=== PATIENT | female | born 1945 | race Caucasian/White ===

== ENCOUNTER → 2018-02-01 11:22 | Outpatient (CLI) | payer MEDICARE, SELFPAY ==
--- NOTE | 2018-02-01 11:25 | BI_ITS ---
MAMMOGRAPHY - BILATERAL SCREENING REASON FOR EXAM: Female, 72 years old. Routine annual screening examination. PERTINENT HISTORY: Grandmother with breast cancer. TECHNIQUE: Digital bilateral breast melisa (3D mammographic acquisition) in the CC and MLO projections. 2-D mediolateral oblique (MLO) and craniocaudad (CC) views of both breasts were obtained. CAD: Full Field Digital Mammography with Computer Added Detection was performed. COMPARISON: Comparison is made with prior study dated November 26, 2016 and October 11, 2015. FINDINGS: Breast Composition: There are scattered areas of fibroglandular density. There are no dominant masses or suspicious calcifications. Stable bilateral benign-appearing axillary lymph nodes. No other significant abnormalities are identified. There has been no significant change since the prior study. BI/SCREENING MAMM (CAD), BILAT IMPRESSION: Stable bilateral screening mammogram. Yearly follow-up mammogram recommended. (A) ASSESSMENT CATEGORY: BIRADS Category 2: Benign. A letter regarding these results will be sent to the patient by the facility within 30 days. Approximately 10% of breast cancers are not detected by mammography. A normal mammogram should not delay biopsy of a clinically suspicious abnormality. [id number] Electronically Signed: Flaquito Redd MD at 8:24 EDT Tel [phone], Service support ,
== END ==
PROVIDERS: Family Provider Internal Medicine; PCP Internal Medicine; Visit Provider Internal Medicine
DX: Z12.31 Encounter for screening mammogram for malignant neoplasm of breast (principal)
CPT/HCPCS: 77063; 77067

== ENCOUNTER → 2019-02-12 | Outpatient (CLI) | payer MEDICARE, SELFPAY ==
--- NOTE | 2019-02-12 10:35 | BI_ITS ---
MAMMOGRAPHY - BILATERAL SCREENING REASON FOR EXAM: Female, 73 years old. Routine annual screening examination. PERTINENT HISTORY: Grandmother with breast cancer. TECHNIQUE: Digital bilateral breast hoang (3D mammographic acquisition) in the CC and MLO projections. 2-D mediolateral oblique (MLO) and craniocaudad (CC) views of both breasts were obtained. CAD: Full Field Digital Mammography with Computer Added Detection was performed. COMPARISON: Comparison is made with prior examination dated February 01, 2018 and November 26, 2016. FINDINGS: Breast Composition: There are scattered areas of fibroglandular density. There are no dominant masses or suspicious calcifications. Stable small bilateral benign-appearing axillary lymph nodes. No other significant abnormalities are identified. There has been no significant change since the prior study. BI/SCREEN MAMM (CAD) W/HOANG BILAT IMPRESSION: Stable bilateral screening mammogram. Yearly follow-up mammogram recommended. (A) ASSESSMENT CATEGORY: BIRADS Category 2: Benign. A letter regarding these results will be sent to the patient by the facility within 30 days. Approximately 10% of breast cancers are not detected by mammography. A normal mammogram should not delay biopsy of a clinically suspicious abnormality. [id number] Electronically Signed: Flaquito Redd, at 10:51 EDT , Service support ,
== END | disposition home or self-care (01) ==
LOC: OPBI 10:31
PROVIDERS: Family Provider Internal Medicine; PCP Internal Medicine; Referring Provider Internal Medicine; Visit Provider Internal Medicine
DX: Z12.31 Encounter for screening mammogram for malignant neoplasm of breast (principal)
CPT/HCPCS: 77063; 77067

== ENCOUNTER → 2019-03-08 | Outpatient (CLI) | payer SELFPAY ==
--- NOTE | 2019-03-08 14:22 | CT_ITS ---
STUDY: CARDIAC CALCIUM SCORING - CT CHEST REASON FOR EXAM: Female, 73 years old. Hyperlipidemia RADIATION DOSAGE (If Supplied By Facility): CTDIvol = ( 12.19 ) mGy, DLP = ( 195.04 ) mGycm TECHNIQUE: Axial non-enhanced images were acquired through the heart for the sole purpose of measuring coronary artery calcium. Individualized dose optimization techniques were used for this CT. COMPARISON: None. FINDINGS: Visualized surrounding anatomy: Normal. Left Main Coronary Artery: 0 Left Anterior Descending Artery: 11.1 Left Circumflex Artery: 0 Right Coronary Artery: 0 Total Calcium Score: 11.1 CT/Limited Chest CT w/CCTA IMPRESSION: A Calcium Score of 11.1 places the patient in the approximate 28th percentile, based on the [employer] data calculator. Please go to: [email or web address] , for a description of the calculator. Electronically Signed: Daniele Fitzgerald, at 15:25 EDT Tel , Service support ,
[2019-03-08 14:37] VITALS: BP 127/61; PULSE 68; RESP 18; O2SAT 99; BMI 25.7
--- NOTE | 2019-03-10 08:55 | CA.SCORE ---
Calcium Scoring Date of Study:: 03/10/19 Coronary Calcium Scoring: High-resolution Computed Tomographic imaging of the chest was performed on [ ], with particular attention paid to the coronary arteries. Images from the examination were analyzed for the presence and extent of coronary artery calcification , using coronary calcium quantification software. The patient tolerated the procedure well and there were no complications. The results of the coronary calcification analysis are provided below. - Findings Left Main (LM): 0 Left Anterior Descending (LAD): 11.1 Left Circumflex (LCX): 0 Right Coronary Artery (RCA): 0 Total Agatston Score: 11.1 Percentile Rankin - Conclusion Calcium Scoring Interpretation: Calcium Score Interpretation 0 No identifiable atherosclerotic plaque. Very low cardiovascular disease risk. <5% chance of presence coronary artery disease A Negative Examination 1-10 Minimal Plaque burden. Significant coronary artery disease very unlikely. 11-100 Mild plaque burden. Likely mild or minimal coronary atherosclerosis. 101-400 Moderate plaque burden Moderate non-obstructive coronary artery disease highly likely. Over 400 Extensive plaque burden. High likelihood of at least one significant coronary stenosis (>50% diameter) Conclusions: Patient's calcium score is suggestive of mild plaque burden, likely mild or minimal coronary atherosclerosis. Recommendations: Risk factor modification. Adoption and maintenance of healthy lifestyle is recommended for all people. Tobacco use should be avoided. However these are general recommendations only, and as with all such matters, the personal physician should be consulted regarding recommendations appropriate for the individual.
== END | disposition home or self-care (01) ==
LOC: CT 14:20
PROVIDERS: Family Provider Internal Medicine; PCP Internal Medicine; Referring Provider Internal Medicine; Visit Provider Internal Medicine
DX: E78.5 Hyperlipidemia, unspecified (principal)
CPT/HCPCS: 75571; 76380

== ENCOUNTER → 2019-06-07 08:54 | Outpatient (CLI) | payer MEDICARE, SELFPAY ==
[2019-03-08 14:37] VITALS: BMI 25.7
--- NOTE | 2019-06-07 09:00 | BD_ITS ---
STUDY: DUAL ENERGY X-RAY ABSORPTIOMETRY / DXA REASON FOR EXAM: Female, 73 years old. The patient is postmenopausal. Loss of height. TECHNIQUE: Bone Mineral Density (BMD) measurements of lumbar spine and bilateral hips were obtained. COMPARISON: Comparison is made with prior study to May 30, 2015. FINDINGS: Lumbar Spine (L1-L4): g/cm2 (1.058) / T-score (-1.0) / Z-score (0.7) Findings are suggestive of normal bone density with a low fracture risk. Left Femur Total: g/cm2 (0.945) / T-score (-0.5) / Z-score (1.1) Left Femoral Neck: g/cm2 (0.819) / T-score (-1.6) / Z-score (0.3) Right Femur Total: g/cm2 (0.980) / T-score (-0.2) / Z-score (1.4) Right Femoral Neck: g/cm2 (0.864) / T-score (-1.2) / Z-score (0.6) The T-Scores on the most recent prior examination were: Lumbar Spine (L1-L4): There has been improvement of bone density since the previous examination. Left Femur Total: which represents an improvement of 0.3%. Right Femur Total: which represents an improvement of 0.9%. BD/Dexa Bone Density Study IMPRESSION: The patient is considered osteopenic as outlined below according to World [place] Organization (WHO) criteria with a moderate fracture risk. There has been improvement of bone density since the previous examination. Reference Information: The T-score is the number of standard deviations above or below the standard which is normal for young adults at their peak bone mineral density. The World Health Organization (WHO) interprets the T-scores as follows: Above -1 Normal bone density Between -1 and -2.5 Osteopenia Equal to / or below -2.5 Osteoporosis As a practical clinical guideline, osteopenia may be graded as follows: Mild -1 through -1.5 Moderate -1.6 through -2.0 Severe -2.1 through -2.4 The Z-score is the number of standard deviations above or below age-matched controls. A Z-score of less than -1.5 would be considered abnormal. References: 1. NIH Osteoporosis and Related Bone Diseases http://www.osteo.org 2. International Society for Clinical Densitometry http://www.iscd.org 3. National Osteoporosis Foundation http://www.nof.org Electronically Signed: Flaquito Redd, at 13:31 EDT , Service support ,
== END ==
PROVIDERS: Family Provider Internal Medicine; PCP Internal Medicine; Referring Provider Internal Medicine; Visit Provider Internal Medicine
DX: Z78.0 Asymptomatic menopausal state (principal)
CPT/HCPCS: 77080

== ENCOUNTER → 2019-11-30 14:41 | Outpatient (CLI) | payer MEDICARE, SELFPAY ==
[2019-03-08 14:37] VITALS: BMI 25.7
--- NOTE | 2019-11-30 14:50 | CT_ITS ---
STUDY: CT ABDOMEN AND PELVIS WITH CONTRAST REASON FOR EXAM: Female, 73 years old. RUQ abdomen pain and diarrhea x 2 weeks. Prior cholecystectomy. HTN-rx controlled. RADIATION DOSAGE (If Supplied By Facility): CTDIvol = ( 9.00 ) mGy, DLP = ( 433.95 ) mGycm TECHNIQUE: Transaxial images were obtained from the dome of the diaphragm to the symphysis pubis without oral contrast. IV 100ML optiray 350 was administered. Sagittal and coronal images were reconstructed. Individualized dose optimization techniques were used for this CT. COMPARISON: None. FINDINGS: The visualized lung bases are unremarkable. The visualized portions of the heart are within normal limits. Normal liver. The patient is status post cholecystectomy. Normal spleen. Normal pancreas. Normal bilateral adrenal glands. Normal right kidney. Normal left kidney. There is a small hiatal hernia. There appears to be a thickening of the gastric antrum. Clinical correlation is recommended. Normal small intestine. There are scattered colonic diverticula consistent with diverticulosis. The appendix is visualized and appears normal. There is scattered atherosclerotic calcification of the abdominal aorta, without a demonstrated aneurysm. Normal inferior vena cava. Normal retroperitoneum. Normal urinary bladder. There is a 1.5 cm x 1.4 cm cystic structure in the left ovary. The endometrium is thickened measuring 1.4 cm. This also evidence of a 2 cm x 1.1 cm cystic structure in the right adnexa. Correlation with ultrasound of the pelvis is recommended for further evaluation. Calcifications are seen within the uterus. Normal abdominal wall. There are degenerative changes of the visualized lumbar spine. CT/Abdomen/Pelvis WITH Contrast IMPRESSION: Thickened endometrium. Cystic structures in both ovaries. Correlation with a pelvic sonogram is recommended. Thickening of the gastric antrum. Electronically Signed: Flaquito Redd, at 15:25 EDT , Service support ,
[2019-11-30 15:16] LABS: CREATININE FINGERSTICK 0.7 mg/dL (0.55-1.02); EGFR FINGERSTICK > 60.0000 mL/min (>60)
== END ==
PROVIDERS: PCP Internal Medicine; Referring Provider Internal Medicine; Visit Provider Internal Medicine
DX: R10.9 Unspecified abdominal pain (principal)
CPT/HCPCS: 74177; Q9967

== ENCOUNTER → 2019-12-09 12:07 | Outpatient (CLI) | payer MEDICARE, SELFPAY ==
[2019-03-08 14:37] VITALS: BMI 25.7
--- NOTE | 2019-12-09 12:16 | US_ITS ---
STUDY: ULTRASOUND OF THE FEMALE PELVIS - COMPLETE REASON FOR EXAM: Female, 73 years old. Thickened endometrium, ovarian cyst LMP: The patient is postmenopausal. TECHNIQUE: Transabdominal and Transvaginal TECHNICAL QUALITY: Adequate. COMPARISON: Comparison made with prior CT scan examination of the abdomen and pelvis dated November 30, 2019. FINDINGS: The uterus is retroverted and is in a midline position. The uterus measures 6.5 cm x 3.7 cm x 2.8 cm. There is a Nabothian cyst of the cervix. The endometrium measures 6.9 mm in thickness, and is fluid distended. Findings suggestive of a small endometrial polyps. The larger measuring 6 mm x 5 mm x 2 mm. I suspect a 1.1 cm x 1.6 x 0.5 cm fibroid in the region of the cervix. I.U.D. - The patient does not have an I.U.D. The right ovary is visualized. The right ovary measures 1.2 cm x 0.77 x 0.6 cm. There is no right ovarian cyst or ovarian mass. There is no visualized right adnexal mass or complex lesion. There is normal arterial and normal venous vascularity. The left ovary is visualized. The left ovary measures 2.7 cm x 2.3 cm x 1.7 cm. There is a 1.8 cm x 1.6 x 1.5 cm cyst in the left ovary. There is no visualized left adnexal mass or complex lesion. There is normal arterial and normal venous vascularity. There is minimal fluid in the cul-de-sac. The pre void volume of the bladder was 118 ml. Polycystic ovary disease: No. US/Transvaginal Non- IMPRESSION: Thickened endometrium with fluid distention. Possible endometrial polyps. Small uterine fibroid in the region of the cervix. 1.8 cm x 1.6 x 1.5 cm left ovarian cyst. Electronically Signed: Flaquito Redd, at 14:19 EDT , Service support ,
== END ==
PROVIDERS: PCP Internal Medicine; Referring Provider Internal Medicine; Visit Provider Internal Medicine
DX: R10.31 Right lower quadrant pain (principal); R10.32 Left lower quadrant pain
CPT/HCPCS: 76830

== ENCOUNTER 2020-05-07 08:36 | Day surgery (SDC) | payer MEDICARE, SELFPAY ==
[2020-04-23 13:55] VITALS: BMI 25.7
--- NOTE | 2020-04-24 08:29 | HP_ITS ---
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 Is patient in pain?: No Allergies No Known Allergies Allergy (Verified 04/23/20 13:54) Medications cholecalciferol (vitamin D3) 50 mcg (2,000 unit) capsule 50 mcg PO DAILY 04/23/20 [History Confirmed 04/23/20] lisinopril 20 mg-hydrochlorothiazide 12.5 mg tablet 1 tab PO DAILY 04/23/20 [History Confirmed 04/23/20] vitamins A,C,O-ltvd-kigncu 7,160 unit-113 mg-100 unit tablet 2 tab PO BID 04/23/20 [History Confirmed 04/23/20] PFSH Medical History HTN (hypertension) (Chronic) Surgical History S/P laparoscopic cholecystectomy (Acute) Family History Grandmother Breast cancer Cancer stomach Social History (Updated 04/24/20 @ 08:[address] Jf Estevez MD) Smoking Status: Never smoker alcohol intake: never HPI HPI Surgical H&P: Yes HPI: LOPEZ JACKSON, is a 74 F who presents to the office today for Evaluation for endoscopy. Patient states that she has been having cramps and diarrhea since November 2019. She is also been having some belching. She has had negative stool studies. In addition she had a CAT scan of her abdomen and pelvis which showed thickening of the gastric antrum on her CT. This essentially been going off and on since November 14. Her last colonoscopy was in 2010. It was negative at that time. She has not noticed any blood. Her CAT scan also noted that she had a small hiatal hernia in addition to the thickening of the gastric antrum. She does have a family history of gastric cancer. ROS General General: Yes fatigue; no weight change, appetite, colon cancer, breast cancer or weakness HEENT HEENT: No difficulty swallowing, eye injury, eye surgery, swollen glands or hoarseness Endo Endocrine: No thyroid disease, diabetes mellitus, thyroid cancer, Hair loss, heat intolerance or cold intolerance Skin Skin: No rash or changing moles Breast Breast: No left breast lump, right breast lump, nipple discharge, breast pain, abnormal mammogram, abnormal US or breast enlargement Musc Musculoskeletal: No back problems, arthritis, rheumatoid arthritis, gout or joint pain Cardio Cardiovascular: Yes high blood pressure; no murmur, pacemaker, heart disease, atrial fibrillation, heart attack, heart stent, palpitations, shortness of breat with exertion or chest pain Psych Psychiatric: No depression, anxiety or hearing voices Resp Respiratory: No shortness of breath, No sleep apnea, No cough, No COPD, No asthma, No emphysema, No wheezing Gastro Gastrointestinal: Yes abdominal pain, Yes nausea or vomiting, Yes diarrhea, No constipation, No blood in stool, Yes acid reflux, No hemorrhoids, No ulcers, No gallbladder problem, No black,tarry stools Rg Hematologic: No blood thinners, No blood disorders, No bleeding, No anemia, No blood clots Neuro Neurologic: No system reviewed and no additional complaints, except as docu, No as per HPI, No abnormal walking, No abnormal hearing, No abnormal movements, No abnormal speech, No behavioral changes, No burning sensations, No confusion, No seizure-like activity, No unsteadiness, No dizziness, No localized weakness, No frequent falls, No headache(s), No lack of coordination, No loss of vision, No memory loss, No numbness, No other visual disturbances, No radiating pain, No restless legs, No sensory deficit, No fainting, No tingling, No tremor(s), No weakness, No other Exam Const General: no acute distress, well developed, well hydrated Orientation: oriented to person, oriented to place, oriented to time [facility] Head: normocephalic, atraumatic Ears: external ears normal Mouth: moist mucous membranes Eyes Sclera: sclerae normal Pupils: normal by confrontation Neck Neck: no lymphadenopathy noted Neck mass: No Thyroid: thyroid normal, symmetrical Chest Chest palpation & inspection: normal inspection of the chest Breast Palpation: No nipple discharge Resp Effort & Inspection: normal respiratory effort Auscultation: clear to auscultation bilaterally Percussion: percussion normal Cardio Rate: regular rate Rhythm: regular rhythm Heart Sounds: no murmurs GI Palpation: soft, no hepatosplenomegaly, no masses, nontender Rectal Exam: other Other: Rectal exam deferred. Extrem General: normal to inspection, no clubbing, cyanosis or edema Assessment & Plan Problems 1. Abnormal CT scan, gastrointestinal tract R93.3 2. Diarrhea, unspecified type R19.7 Plan I have discussed the above with the patient. I have offered the patient colonoscopy As well as an EGD for evaluation. I have explained the risks/benefits of the procedure and described the procedure. I have discussed the risks with the patient, including but not limited to: infection, bleeding, perforation of the GI tract requiring emergency surgery, inability to complete the procedure, injury to any internal organs, complications of anesthesia, etc. - the patient understands and agrees to proceed. I have answered all the patient's questions to the patient's satisfaction and the patient has no further questions. The patient has been given instructions for the colon cleansing preparation. We will be biopsying the duodenum as well as any abnormalities in the stomach. In addition she will need to have random colon biopsies. Coding Level of Care Code Off vis,new,level [address] scan, gastrointestinal tract R93.3 Diarrhea, unspecified type R19.7 ??Diarrhea type: unspecified type 04/24/20 0830 <Electronically signed by Jf ayala MD> Date _ Jf Estevez MD I have re-examined the patient. There are no clinical changes since date of exam.
[2020-05-07] VITALS (7 sets, daily range): BP systolic 97–131; BP diastolic 35–58; PULSE 63–81; RESP 16–18; TEMP 36.3–36.7; O2SAT 98–100; BMI 25.0
[2020-05-07] MEDS: Lactated Ringers 1,000 ML 100 ML IV (09:40)
--- NOTE | 2020-05-07 10:00 | EGD_PTH ---
PATIENT: LOPEZ JACKSON LOC: EN U#:[id number] AGE/SX: 74/F ROOM: RE05/07/[address]: Dr. Jf Estevez MD : 1945 BED: DIS: 05/07/2020 SPEC #: [id number] RECD: 05/07/20 12:24 STATUS: ANAT REMichael #: [id number] FARIDEH: 05/07/20 10:[address]: Jf Estevez DEPT: SURGICAL PATHOLOGY RECD BY: Kilo Sun ENTERED: 05/07/20 12:57 SP TYPE: EGD BIOPSY OTHR DR: Dr. Balbina Schulz DO Tissues: A - Duodenum, NOS B - Gastric mucous membrane C - COLON BIOPSY Procedures: Trichrome (control) Special Stain Group II Surgery Specimen Level IV HEADER OPERATION: Colonoscopy, EGD ([facility] [place]) PRE-OP DIAGNOSIS: Abnormal abdomen CT scan, diarrhea TISSUE SUBMITTED: A - Duodenal biopsy, B - Antrum biopsy for H. pylori and path, C - Random colon biopsies MICROSCOPIC DIAGNOSIS A. Duodenum, biopsy: No significant pathologic change. B. Gastric antrum, biopsy: Minimal chronic inflammation. C. Colon, random biopsy: Suggestive of collagenous colitis. See comment. AM:charleen 05/08/20 COMMENT B. The results of immunohistochemistry for Helicobacter pylori will be reported separately ([id number]). C. Trichrome stain with matched control was used in the evaluation of this case. Case has been reviewed in consultation with Dr. Amaya who concurs with the above diagnosis. IDC:[email or web address] MICROSCOPIC DESCRIPTION Slides are reviewed. GROSS DESCRIPTION A - Received in fixative is one container labeled with the patient's name and designated duodenum biopsy. The specimen consists of one irregular fragment of light shafer soft tissue that measures 0.5 x 0.4 x 0.1 cm. The specimen is totally submitted in one cassette. B - Received in fixative is one container labeled with the patient's name and designated antrum biopsy. The specimen consists of one irregular fragment of light shafer soft tissue that measures 0.4 x 0.3 x 0.1 cm. The specimen is totally submitted in one cassette. C - Received in fixative is one container labeled with the patient's name and designated random colon biopsy. The specimen consists of multiple irregular fragments of light shafer soft tissue that in aggregate measure 2.5 x 0.5 x 0.1 cm. The specimen is totally submitted in one cassette. / SJ:rg 05/07/20 TC:3 CPT: 06293 x3, 41783
--- NOTE | 2020-05-07 10:00 | IMM_PTH ---
PATIENT: LOPEZ JACKSON LOC: EN U#:[id number] AGE/SX: 74/F ROOM: RE05/07/[address]: Dr. Jf Estevez MD : 1945 BED: DIS: 05/07/2020 SPEC #: [id number] RECD: 05/07/20 13:12 STATUS: SOUYon REQ #: [id number] FARIDEH: 05/07/20 10:[address]: Jf Estevez DEPT: IMMUNOHISTOCHEMISTRY RECD BY: Swetha Rayo ENTERED: 05/07/20 13:13 SP TYPE: IMMUNO OTHR DR: Dr. Balbina Schulz DO Tissues: B - Stomach, NOS Procedures: H Pylori (initial) PHYSICIAN & INSTITUTION [place] [address] SPECIMEN INFORMATION: Tissue Source: B - Antrum biopsy Clinical Info: Abnormal abdomen CT scan, diarrhea Specimen Number: [id number] CPT code: 40105 METHODOLOGY: Deparaffinized sections of prefer/formalin-fixed tissue or PAP/DQ stained slides are incubated with monoclonal/polyclonal antibodies/oligonucleotide probes. Localization is made via biotin free immunoperoxidase method. Appropriate controls are performed and reacted as expected. Results on target cell population are indicated in the following table: RESULTS: ANTIBODY / CLONE RESULT Block B H Pylori (polyclonal) negative These tests were developed and their performance characteristics determined by [facility]. They may not have been cleared or approved by the U.S. Food and Drug Administration. The FDA has determined that such clearance or approval is not necessary. INTERPRETATION: B. Antrum biopsy: Negative for Helicobacter pylori organisms. AM:charleen 05/08/20
--- NOTE | 2020-05-07 10:21 | OP.EGD_ITS ---
Patient Name: Rozina Tavera Procedure Date: 05/07/2020 9:51 AM Date of : 1945 Age: 74 Procedure: Upper GI endoscopy Indications: Abnormal CT of the GI tract, Diarrhea Providers: Jf Estevez MD Referring MD: Balbina Schulz Medicines: See the Anesthesia note for documentation of the administered medications Patient Profile: This is a 74 year old female. Refer to note in patient chart for documentation of history and physical. Complications: No immediate complications. Procedure: Pre-Anesthesia Assessment: - Prior to the procedure, a History and Physical was performed, and patient medications and allergies were reviewed. The patient's tolerance of previous anesthesia was also reviewed. The risks and benefits of the procedure and the sedation options and risks were discussed with the patient. All questions were answered, and informed consent was obtained. Prior Anticoagulants: The patient has taken no previous anticoagulant or antiplatelet agents. ASA Grade Assessment: II - A patient with mild systemic disease. After reviewing the risks and benefits, the patient was deemed in satisfactory condition to undergo the procedure. After obtaining informed consent, the endoscope was passed under direct vision. Throughout the procedure, the patient's blood pressure, pulse, and oxygen saturations were monitored continuously. The Endoscope was introduced through the mouth, and advanced to the second part of duodenum. The upper GI endoscopy was accomplished without difficulty. The patient tolerated the procedure well. Scope In: 10:01:50 AM Scope Out: 10:04:03 AM Total Procedure Duration Time 0 hours 2 minutes 13 seconds Findings: The examined esophagus was normal. Localized mild inflammation characterized by erosions and erythema was found in the prepyloric region of the stomach. Biopsies were taken with a cold forceps for Helicobacter pylori testing. The examined duodenum was normal. Biopsies for histology were taken with a cold forceps for evaluation of celiac disease. Impression: - Normal esophagus. - Gastritis. Biopsied. - Normal examined duodenum. Biopsied. Recommendation: - Await pathology results. - Repeat upper endoscopy (date not yet determined) for surveillance based on pathology results. - Return to my office in 1 week. - Continue present medications. Procedure Code(s): --- Professional --- 47193, Esophagogastroduodenoscopy, flexible, transoral; with biopsy, single or multiple Diagnosis Code(s): --- Professional --- K29.70, Gastritis, unspecified, without bleeding R19.7, Diarrhea, unspecified R93.3, Abnormal findings on diagnostic imaging of other parts of digestive tract CPT copyright 2017 [employer]. All rights reserved. The codes documented in this report are preliminary and upon power transformer assembler review may be revised to meet current compliance requirements. MD Jf Nava MD 05/07/2020 10:21:37 AM This report has been signed electronically. Number of Addenda: 0 Note Initiated On: 05/07/2020 9:51 AM
--- NOTE | 2020-05-07 10:22 | OP.CCLET_ITS ---
05/07/2020 Balbina Schulz Re : Upper GI endoscopy procedure for Rozina Schulz This procedure was performed on Thursday, May 07, 2020. My impressions and recommendations are as follows: Impressions : - Normal esophagus. - Gastritis. Biopsied. - Normal examined duodenum. Biopsied. Recommendations : - Await pathology results. - Repeat upper endoscopy (date not yet determined) for surveillance based on pathology results. - Return to my office in 1 week. - Continue present medications. My findings are described in the full procedure note, which is enclosed. If I can be of further assistance, please feel free to contact me at Doctor phone number(s): , Fax: [phone], Work: . Sincerely, MD Jf Nava MD 05/07/2020 10:21:37 AM This report has been signed electronically.
--- NOTE | 2020-05-07 10:24 | OP.CCLET_ITS ---
05/07/2020 Balbina Schulz Re : Colonoscopy procedure for Rozina Schulz This procedure was performed on Thursday, May 07, 2020. My impressions and recommendations are as follows: Impressions : - Diverticulosis in the sigmoid colon. No specimens collected. - The entire examined colon is normal. Recommendations : - Discharge patient to home. - Resume previous diet. - Continue present medications. - Await pathology results. - Repeat colonoscopy in 10 years for screening purposes. - Return to my office in 1 week. My findings are described in the full procedure note, which is enclosed. If I can be of further assistance, please feel free to contact me at Doctor phone number(s): , Fax: [phone], Work: . Sincerely, MD Jf Nava MD 05/07/2020 10:24:16 AM This report has been signed electronically.
--- NOTE | 2020-05-07 10:24 | OP.COLON_ITS ---
Patient Name: Rozina Tavera Procedure Date: 05/07/2020 10:04 AM Date of : 1945 Age: 74 Procedure: Colonoscopy Indications: Chronic diarrhea Providers: Jf Estevez MD Referring MD: Balbina Schulz Medicines: See the Anesthesia note for documentation of the administered medications Patient Profile: This is a 74 year old female. Refer to note in patient chart for documentation of history and physical. Last Colonoscopy: 2010. Complications: No immediate complications. Procedure: Pre-Anesthesia Assessment: - Prior to the procedure, a History and Physical was performed, and patient medications and allergies were reviewed. The patient's tolerance of previous anesthesia was also reviewed. The risks and benefits of the procedure and the sedation options and risks were discussed with the patient. All questions were answered, and informed consent was obtained. Prior Anticoagulants: The patient has taken no previous anticoagulant or antiplatelet agents. ASA Grade Assessment: II - A patient with mild systemic disease. After reviewing the risks and benefits, the patient was deemed in satisfactory condition to undergo the procedure. After I obtained informed consent, the scope was passed under direct vision. Throughout the procedure, the patient's blood pressure, pulse, and oxygen saturations were monitored continuously. The colonoscope was introduced through the anus and advanced to the cecum, identified by appendiceal orifice and ileocecal valve. The colonoscopy was performed without difficulty. The patient tolerated the procedure well. The quality of the bowel preparation was good. Scope In: 10:06:01 AM Scope Withdrawal Time 0 hours 6 minutes 40 seconds Scope Out: 10:17:28 AM Total Procedure Duration Time 0 hours 11 minutes 27 seconds Findings: A few small-mouthed diverticula were found in the sigmoid colon. No biopsies or other specimens were collected for this exam. The entire examined colon appeared normal. The colon (entire examined portion) appeared normal. Biopsies for histology were taken with a cold forceps from the entire colon for evaluation of microscopic colitis. Impression: - Diverticulosis in the sigmoid colon. No specimens collected. - The entire examined colon is normal. Recommendation: - Discharge patient to home. - Resume previous diet. - Continue present medications. - Await pathology results. - Repeat colonoscopy in 10 years for screening purposes. - Return to my office in 1 week. Procedure Code(s): --- Professional --- 92584, Colonoscopy, flexible; with biopsy, single or multiple Diagnosis Code(s): --- Professional --- K52.9, Noninfective gastroenteritis and colitis, unspecified K57.30, Diverticulosis of large intestine without perforation or abscess without bleeding CPT copyright 2017 [employer]. All rights reserved. The codes documented in this report are preliminary and upon coder operator review may be revised to meet current compliance requirements. MD Jf Nava MD 05/07/2020 10:24:16 AM This report has been signed electronically. Number of Addenda: 0 Note Initiated On: 05/07/2020 10:04 AM
== END 2020-05-07 11:27 | disposition home or self-care (01) ==
LOC: EN 08:37 → AC 08:38
PROVIDERS: Anesthesiology; PCP Internal Medicine; Referring Provider Internal Medicine; Visit Provider Surgery
PROC: 0DJD8ZZ Inspection of Lower Intestinal Tract, Via Natural or Artificial Opening Endoscopic (ICD-10-PCS; CPT 45378; principal; 2020-05-07 09:55)
DX: K57.30 Diverticulosis of large intestine without perforation or abscess without bleeding (principal); K52.9 Noninfective gastroenteritis and colitis, unspecified; R93.3 Abnormal findings on diagnostic imaging of other parts of digestive tract; Z11.59 Encounter for screening for other viral diseases
CPT/HCPCS: 43239; 45380; 87635; 88305; 88313; 88342; 94799; J7120; J1610; J2405; U0003

== ENCOUNTER → 2020-05-25 12:43 | Outpatient (CLI) | payer MEDICARE, SELFPAY ==
[2019-03-08 14:37] VITALS: BMI 25.7
[2020-05-14 09:37] VITALS: BMI 25.0
--- NOTE | 2020-05-25 12:47 | US_ITS ---
STUDY: ULTRASOUND OF THE FEMALE PELVIS - COMPLETE REASON FOR EXAM: Female, 74 years old. OV CYST LMP: The patient is postmenopausal. TECHNIQUE: Transabdominal and Transvaginal TECHNICAL QUALITY: Adequate. COMPARISON: Previous study of 12/09/2019 FINDINGS: The uterus is anteverted and is in a midline position. The uterus measures 5.5 x 3.5 x 2.6 cm. The endometrium measures 7.8 mm in thickness, and is fluid distended. There are endometrial polypoid filling defects measuring 5 x 6 x 3 mm and 3 x 5 x 2 mm respectively. There are 3 uterine fibroids measuring 0.9 x 1.1 x 0.9 cm, 1.1 x 0.9 x 0.8 cm, and 0.4 x 0.6 x 0.2 cm respectively. I.U.D. - The patient does not have an I.U.D. The right ovary is not visualized. The left ovary is visualized. The left ovary measures 2.1 x 2.2 x 1.5 cm. There is a 1.1 x 1.2 x 1.0 cm left ovarian cyst. There is no visualized left adnexal mass or complex lesion. There is normal arterial and normal venous vascularity. There is no fluid in the cul-de-sac. The pre void volume of the bladder was 328 ml. The post void volume of the bladder was ml. Polycystic ovary disease: No. US/Transvaginal Non- IMPRESSION: 1. Endometrial polypoid filling defects, similar to the previous study. Endometrial fluid is present. This was also previously seen. 2. Uterine fibroids as detailed above. 3. 1.1 x 1.2 x 1.0 cm left ovarian cyst. 4. Cervical nabothian cyst. Electronically Signed: Dionicio العلي MD at 19:59 EDT , Service support ,
--- NOTE | 2020-05-25 12:47 | BI_ITS ---
MAMMOGRAPHY - BILATERAL SCREENING REASON FOR EXAM: Female, 74 years old. Routine annual screening examination. PERTINENT HISTORY: Grandmother with breast cancer. TECHNIQUE: Digital bilateral breast hoang (3D mammographic acquisition) in the CC and MLO projections. 2-D mediolateral oblique (MLO) and craniocaudad (CC) views of both breasts were obtained. CAD: Full Field Digital Mammography with Computer Added Detection was performed. COMPARISON: Comparison is made with prior study dated 02/12/2019 and 02/01/2018. FINDINGS: Breast Composition: There are scattered areas of fibroglandular density. There are no dominant masses or suspicious calcifications. Stable benign appearing bilateral axillary lymph node. No other significant abnormalities are identified. There has been no significant change since the prior study. BI/SCREEN MAMM (CAD) W/HOANG BILAT IMPRESSION: Stable bilateral screening mammogram. Yearly follow-up mammogram recommended. (A) ASSESSMENT CATEGORY: BIRADS Category 2: Benign. A letter regarding these results will be sent to the patient by the facility within 30 days. Approximately 10% of breast cancers are not detected by mammography. A normal mammogram should not delay biopsy of a clinically suspicious abnormality. [id number] Electronically Signed: Flaquito Redd, at 14:25 EDT , Service support ,
== END ==
PROVIDERS: PCP Internal Medicine; Referring Provider Internal Medicine; Visit Provider Internal Medicine
DX: Z12.31 Encounter for screening mammogram for malignant neoplasm of breast (principal); D25.9 Leiomyoma of uterus, unspecified; N83.202 Unspecified ovarian cyst, left side; N88.8 Other specified noninflammatory disorders of cervix uteri; Z78.0 Asymptomatic menopausal state; Z80.3 Family history of malignant neoplasm of breast
CPT/HCPCS: 76830; 77063; 77067

== ENCOUNTER → 2021-08-20 10:19 | Outpatient (CLI) | payer MEDICARE, SELFPAY ==
--- NOTE | 2021-08-20 10:22 | BI_ITS ---
MAMMOGRAPHY - BILATERAL SCREENING REASON FOR EXAM: Female, 75 years old. Routine annual screening examination. PERTINENT HISTORY: Aunt with breast cancer. TECHNIQUE: Digital bilateral breast hoang (3D mammographic acquisition) in the CC and MLO projections. 2-D mediolateral oblique (MLO) and craniocaudad (CC) views of both breasts were obtained. CAD: Full Field Digital Mammography with Computer Added Detection was performed. COMPARISON: Comparison is made with prior study dated 05/25/2020 and 02/12/2019. FINDINGS: Breast Composition: There are scattered areas of fibroglandular density. There are no dominant masses or suspicious calcifications. No other significant abnormalities are identified. There has been no significant change since the prior study. BI/SCRN MAMM (CAD)W/HOANG BILAT IMPRESSION: Stable bilateral screening mammogram. Yearly follow-up mammogram recommended. (A) ASSESSMENT CATEGORY: BIRADS Category 1: Negative. A letter regarding these results will be sent to the patient by the facility within 30 days. Approximately 10% of breast cancers are not detected by mammography. A normal mammogram should not delay biopsy of a clinically suspicious abnormality. [id number] Electronically Signed: Flaquito Redd MD at 11:26 EST , Service support ,
--- NOTE | 2021-08-20 10:26 | BD_ITS ---
STUDY: DUAL ENERGY X-RAY ABSORPTIOMETRY / DXA REASON FOR EXAM: Female, 75 years old. Z780. The patient is postmenopausal. TECHNIQUE: Bone Mineral Density (BMD) measurements of lumbar spine and bilateral hips were obtained. COMPARISON: Comparison is made with prior study dated 06/07/2019. FINDINGS: Lumbar Spine (L1-L4): g/cm2 (0.905) / T-score (-1.3) / Z-score (1.1) Findings are suggestive of osteopenia with a low fracture risk. Left Femur Total: g/cm2 (0.835) / T-score (-0.9) / Z-score (0.9) Left Femoral Neck: g/cm2 (0.668) / T-score (-1.6) / Z-score (0.5) Right Femur Total: g/cm2 (0.842) / T-score (-0.8) / Z-score (1.0) Right Femoral Neck: g/cm2 (0.680) / T-score (-1.5) / Z-score (0.6) The T-Scores on the most recent prior examination were: Lumbar Spine (L1-L4): There has been worsening of bone density since the previous examination. Left Femur Total: which represents a worsening of 5.1%. Right Femur Total: which represents a worsening of 7.9%. BD/Dexa Bone Density Study IMPRESSION: The patient is considered osteopenic as outlined below according to World [place] Organization (WHO) criteria with a moderate fracture risk. There has been worsening of bone density since the previous examination. Reference Information: The T-score is the number of standard deviations above or below the standard which is normal for young adults at their peak bone mineral density. The World Health Organization (WHO) interprets the T-scores as follows: Above -1 Normal bone density Between -1 and -2.5 Osteopenia Equal to / or below -2.5 Osteoporosis As a practical clinical guideline, osteopenia may be graded as follows: Mild -1 through -1.5 Moderate -1.6 through -2.0 Severe -2.1 through -2.4 The Z-score is the number of standard deviations above or below age-matched controls. A Z-score of less than -1.5 would be considered abnormal. References: 1. NIH Osteoporosis and Related Bone Diseases www osteo.org 2. International Society for Clinical Densitometry www iscd.org 3. National Osteoporosis Foundation www nof.org Electronically Signed: Flaquito Redd MD at 10:41 EST , Service support ,
== END ==
PROVIDERS: PCP Internal Medicine; Referring Provider Internal Medicine; Visit Provider Internal Medicine
DX: Z12.31 Encounter for screening mammogram for malignant neoplasm of breast (principal); Z78.0 Asymptomatic menopausal state; M85.80 Other specified disorders of bone density and structure, unspecified site; Z80.3 Family history of malignant neoplasm of breast
CPT/HCPCS: 77063; 77067; 77080

== ENCOUNTER → 2022-07-23 | Outpatient (CLI) | payer MEDICARE, SELFPAY ==
--- NOTE | 2022-07-23 13:12 | US_ITS ---
STUDY: ULTRASOUND OF THE FEMALE PELVIS - COMPLETE REASON FOR EXAM: Female, 76 years old. OVARIAN CYST TECHNIQUE: Endovaginal. Transvaginal US was obtained to better visualized the ovaries. COMPARISON: 05/25/2020. FINDINGS: The uterus is retroverted and is in a midline position. The uterus measures 6.6 x 3.3 cm. There is a Nabothian cyst of the cervix. The endometrium measures 2.6 mm in thickness, and is fluid distended. There are findings suggesting endometrial mass. It is echogenic and measures 6 x 4 x 3 mm, 4 x 5 x 2 mm and a complex lesion measuring 5 x 5 x 4 mm. Fibroids visualized measuring 10 x 9 mm and 13 x 9 mm. I.U.D. - The patient does not have an I.U.D. There is nonvisualization of the right ovary due to overlying bowel gas. The left ovary is visualized. The left ovary measures 2 x 2 cm. Probable follicle measuring 16 mm. There is no visualized left adnexal mass or complex lesion. There is normal arterial and normal venous vascularity. There is no fluid in the cul-de-sac. Urinary bladder volume is (in cc) 229. US/Pelvic (Non ) IMPRESSION: There are endometrial lesions concerning for possible endometrial carcinoma. Direct visualization is recommended. Fibroid uterus Slight enlargement of the left ovarian cyst. Electronically Signed: Moises Collier MD at 21:17 EST ,
== END | disposition home or self-care (01) ==
LOC: OPUS 13:10 → US 13:18
PROVIDERS: PCP Internal Medicine; Referring Provider Internal Medicine; Visit Provider Internal Medicine
DX: N83.209 Unspecified ovarian cyst, unspecified side (principal)
CPT/HCPCS: 76830; 76856

== ENCOUNTER → 2022-07-28 | Outpatient (CLI) | payer MEDICARE, SELFPAY ==
--- NOTE | 2022-07-30 13:07 | PFT ---
INTRODUCTION: The patient is a 76-year-old female that presents for pulmonary function studies secondary to a diagnosis of dyspnea. Respiratory therapy reported good patient effort. Bronchodilators were used during testing. INTERPRETATION: Forced expiration spirometry demonstrates no evidence of a large airways obstructive ventilatory defect. There was a significant response to aerosolized bronchodilators noted. Spirograms are of good quality and plateau normally. Body plethysmography was performed and revealed a decreased TLC to 3.33 L, 80% of predicted, indicative of a mild restrictive ventilatory impairment. Diffusing capacity by single breath CO is within normal limits. 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
== END | disposition home or self-care (01) ==
LOC: PSN 09:07
PROVIDERS: PCP Internal Medicine; Referring Provider Internal Medicine; Visit Provider Internal Medicine
DX: R94.2 Abnormal results of pulmonary function studies (principal)
CPT/HCPCS: 94060; 94726; 94729

== ENCOUNTER → 2023-02-13 | Outpatient (CLI) | payer MEDICARE, SELFPAY ==
--- NOTE | 2023-02-13 10:39 | BI_ITS ---
MAMMOGRAPHY - BILATERAL SCREENING REASON FOR EXAM: Female, 77 years old. Routine annual screening examination. PERTINENT HISTORY: Grandmother with breast cancer. TECHNIQUE: Digital bilateral breast hoang (3D mammographic acquisition) in the CC and MLO projections. 2-D mediolateral oblique (MLO) and craniocaudad (CC) views of both breasts were obtained. CAD: Full Field Digital Mammography with Computer Added Detection was performed. COMPARISON: Comparison is made with prior study dated August 20, 2021 and May 25, 2020. FINDINGS: Breast Composition: There are scattered areas of fibroglandular density. There are no dominant masses or suspicious calcifications. Stable benign-appearing bilateral axillary lymph nodes. No other significant abnormalities are identified. There has been no significant change since the prior study. BI/SCRN MAMM (CAD)W/HOANG BILAT IMPRESSION: Stable bilateral screening mammogram. Yearly follow-up mammogram recommended. (A) ASSESSMENT CATEGORY: BIRADS Category 2: Benign. A letter regarding these results will be sent to the patient by the facility within 30 days. Approximately 10% of breast cancers are not detected by mammography. A normal mammogram should not delay biopsy of a clinically suspicious abnormality. [id number] Electronically Signed: Flaquito Redd MD at 12:37 EDT ,
== END | disposition home or self-care (01) ==
LOC: OPBI 10:38
PROVIDERS: PCP Internal Medicine; Referring Provider Internal Medicine; Visit Provider Internal Medicine
DX: Z12.31 Encounter for screening mammogram for malignant neoplasm of breast (principal)
CPT/HCPCS: 77063; 77067

== ENCOUNTER → 2023-07-29 | Outpatient (CLI) | payer MEDICARE, SELFPAY ==
--- NOTE | 2023-07-29 18:31 | CT_ITS ---
INDICATION: lung nodule EXAMINATION: CT CHEST WITHOUT CONTRAST - CT Chest W/O Contrast Injection TECHNIQUE: Helically acquired images were obtained of the chest. A radiation dose optimization technique was used for this scan. IV Contrast dosage and agent: None. RADIATION DOSAGE (If Supplied By Facility): CTDIvol = ( 7.53 ) mGy, DLP = ( 248.41 ) mGycm COMPARISON: Chest x-ray of 07/01/2023. FINDINGS: LUNGS, PLEURA AND LARGE AIRWAYS: Focal nodularity and tree-in-bud appearance in the right upper lobe abutting the posterior major fissure. Adjacent 1.5 x 0.9 cm nodular density also abutting the major fissure. Mild focal tree-in-bud appearance and nodularity in the left upper lobe. Soft tissue density in the lingula measuring about 1 cm. No focal consolidation is seen. No pleural effusion or thickening. No pneumothorax. THYROID: No thyroid lesions. HEART AND PERICARDIUM: Heart size is normal. No pericardial effusion. CORONARY ARTERIES: Coronary artery calcification are seen. VESSELS: Atherosclerotic calcifications and mild tortuosity of the thoracic aorta without evidence of aneurysm. MEDIASTINUM AND BAUDILIO: Few small mediastinal nodes. No evidence of hilar or mediastinal adenopathy. Esophagus is unremarkable. No hiatal hernia. UPPER ABDOMEN: No acute pathology. BONES: No suspicious lytic or blastic abnormality. CT/Chest without Contrast IMPRESSION: 1. Focal areas of nodularity and tree-in-bud appearance in both upper lobes likely reflecting previous infectious process. 2. 1.5 cm nodule adjacent to the nodularity in the right upper lobe again likely inflammatory or infectious. Tumor however cannot be excluded. Follow-up exam in 3 months or correlation with PET scan is recommended. 3. 1 cm density in the lingula which can be further evaluated by follow-up exam.. Electronically Signed: Beto Gaspar MD at 10:09 [facility] ,
== END | disposition home or self-care (01) ==
LOC: CT 18:25
PROVIDERS: PCP Internal Medicine; Referring Provider Internal Medicine; Visit Provider Internal Medicine
DX: R91.1 Solitary pulmonary nodule (principal)
CPT/HCPCS: 71250

== ENCOUNTER → 2023-08-27 | Outpatient (CLI) | payer MEDICARE, SELFPAY ==
--- NOTE | 2023-08-27 10:50 | BD_ITS ---
STUDY: DUAL ENERGY X-RAY ABSORPTIOMETRY / DXA REASON FOR EXAM: Female, 77 years old. 627.8Menopausal postmenopausal BONE DENSITY REASON FOR EXAM TECHNIQUE: Bone Mineral Density (BMD) measurements of lumbar spine and bilateral hips were obtained. COMPARISON: Comparison is made with prior study dated August 20, 2021. FINDINGS: Lumbar Spine (L1-L4): g/cm2 (0.922) / T-score (-1.6) / Z-score (1.1) Findings are suggestive of osteopenia with a moderate fracture risk. Left Femur Total: g/cm2 (0.817) / T-score (-1.0) / Z-score (0.9) Left Femoral Neck: g/cm2 (0.628) / T-score (-2.0) / Z-score (0.2) Right Femur Total: g/cm2 (0.820) / T-score (-1.0) / Z-score (0.9) Right Femoral Neck: g/cm2 (0.644) / T-score (-1.8) / Z-score (0.4) The T-Scores on the most recent prior examination were: Lumbar Spine (L1-L4): There has been worsening of bone density since the previous examination. Left Femur Total: which represents a worsening of 2.2%. Right Femur Total: which represents a worsening of 2.6%. BD/Dexa Bone Density Study IMPRESSION: The patient is considered osteopenic as outlined below according to World [place] Organization (WHO) criteria with a moderate fracture risk. There has been worsening of bone density since the previous examination. Reference Information: The T-score is the number of standard deviations above or below the standard which is normal for young adults at their peak bone mineral density. The World Health Organization (WHO) interprets the T-scores as follows: Above -1 Normal bone density Between -1 and -2.5 Osteopenia Equal to / or below -2.5 Osteoporosis As a practical clinical guideline, osteopenia may be graded as follows: Mild -1 through -1.5 Moderate -1.6 through -2.0 Severe -2.1 through -2.4 The Z-score is the number of standard deviations above or below age-matched controls. A Z-score of less than -1.5 would be considered abnormal. References: 1. NIH Osteoporosis and Related Bone Diseases www osteo.org 2. International Society for Clinical Densitometry www iscd.org 3. National Osteoporosis Foundation www nof.org Electronically Signed: Flaquito Redd MD at 10:36 EST ,
== END | disposition home or self-care (01) ==
LOC: OPBD 10:45
PROVIDERS: PCP Internal Medicine; Referring Provider Internal Medicine; Visit Provider Internal Medicine
DX: Z78.0 Asymptomatic menopausal state (principal)
CPT/HCPCS: 77080

== ENCOUNTER → 2023-09-01 | Outpatient (CLI) | payer MEDICARE, SELFPAY ==
--- NOTE | 2023-09-01 09:00 | PET_ITS ---
EXAMINATION: FDG PET/CT ? INDICATIONS: 77-year-old female with a history of pulmonary nodularity. ? COMPARISON EXAMINATION: CT of the chest report 07/29/2023 ? INDEX LESION SIZE SUV INTERPRETATION Right upper lung, right upper lobe 8.9 mm 6.2 Fulfills quantitative criteria for viable neoplasm ? Bilateral thoracic perihilum 19.1 mm 3.5 Fulfills quantitative criteria for viable neoplasm ? TECHNIQUE: Following the intravenous administration of 13.8 mCi of F-18 deoxyglucose via the right antecubital fossa, multiplanar image acquisitions of the head, neck, chest, abdomen and pelvis to the level of the midthigh, obtained at one-hour post radiopharmaceutical administration contemporaneously interpreted with the current CT of the chest, abdomen and pelvis dated 09/01/2023 via coregistration reveal: SERUM GLUCOSE LEVEL:? 96 mg/dL? HEIGHT:?? 61 inches WEIGHT:?? 135 pounds ? FINDINGS: ? HEAD/NECK:? Prominent uptake is noted at the level of the laryngeal structures associated with the true and false vocal cords to the left and right of the midline without evidence of soft tissue thickening, most consistent with physiologic tracer uptake. ? The visualized portion of the cerebral cortical-subcortical structures demonstrate symmetric and preserved glucose metabolism. ? CHEST:? Facilitated FDG concentration is manifest in the right upper lung field, right upper lobe, generating a calculated maximum standard uptake value of 6.2. The maximal axial diameter of the metabolic, morphologic abnormality is 8.9 mm. Facilitated labeled glucose uptake is noted in the bilateral thoracic perihilum generating a calculated standard uptake value of 3.5. The largest corresponding metabolic abnormality is 19.1 mm. ? CT of the chest demonstrates the following anatomic characteristics: Atherosclerotic calcification is defined in the thoracic aorta without evidence of dilatation, aneurysm formation. Coronary artery calcification is observed. Mediastinal and bilateral axillary soft tissue densities are ametabolic. Additional parenchymal changes noted in the left lower anterior lung zone are ametabolic. ? ABDOMEN/PELVIS:? Normal physiologic distribution of the radiopharmaceutical is identified in the hepatic (3.0) and splenic parenchyma, both renal units, urinary bladder, and visualized intestinal tract. Accentuated uptake is noted in the right abdominal mesentery in the region of the ascending colon, most consistent with physiologic tracer uptake.? ? CT of the abdomen and pelvis is remarkable for the following: Atherosclerotic calcification is defined in the abdominal aorta without evidence of dilatation, aneurysm formation. Pelvic arterial calcification is observed. A splenule is apparent in the left upper abdomen. Questionable evidence of calcific densities are noted in proximity to the gallbladder fossa. ? SKELETAL:? There is no evidence of quantitatively significant enhanced glucose metabolism on meticulous inspection of the appendicular and axial skeletal structures. ? Degenerative changes defined in the thoracic and lumbar spine demonstrate no evidence of increased glucose metabolism. There are no sclerotic, mixed sclerotic-lytic, or primarily lytic changes defined in the axial skeletal structures with evidence of increased FDG uptake. ? PET/PET/CT Tumor Base -Thigh Init IMPRESSION: 1. The increase in radiopharmaceutical concentration defined in the right upper lung field, right upper lobe fulfills quantitative criteria for viable neoplasm. Histopathologic analysis is recommended. (Chaitanya et al, Journal of Nuclear Medicine, 32:1, 1990). 2. Facilitated uptake noted in the bilateral thoracic perihilum fulfills borderline quantitative criteria for malignant transformation. (Nacho et al, Journal of Clinical Oncology, 16:2142, 1998). Electronic Signature Miah Murrell D.O. Accurate Quantification of SUVs for this report are calculated using the exclusive [employer]. ([place]. Patent No. [id number], [phone], 983 B2 [phone] [place] patent [phone]). Standardization and correction of the FDG SUV metric via [employer] technology allow for vendor non-specific objective quantitative examination comparison and optimization of the sensitivity and specificity of the FDG PET-CT examination. . [email or web address] Electronically Signed: Miah Murrell DO at 12:40 EST ,
== END | disposition home or self-care (01) ==
PROVIDERS: PCP Internal Medicine; Referring Provider Internal Medicine; Visit Provider Internal Medicine
DX: R91.8 Other nonspecific abnormal finding of lung field (principal)
CPT/HCPCS: 78815; A9552

== ENCOUNTER → 2023-11-24 | Outpatient (CLI) | payer MEDICARE, SELFPAY ==
--- NOTE | 2023-11-24 09:30 | PET_ITS ---
EXAMINATION: FDG PET/CT ? INDICATIONS: 77 year-old female with a history of pulmonary nodularity, presenting for reevaluation. ? COMPARISON EXAMINATION: FDG-PET CT study dated 09/01/2023. ? INDEX LESION SIZE SUV INTERPRETATION PERSISTENT Right upper lung field, right upper lobe 11.3 mm compared to 8.9 mm, 09/01/2023 3.2 compared to 6.2, 09/01/2023 Fulfills quantitative criteria for viable neoplasm, histopathologic analysis is recommended if not previously obtained ? PERSISTENT Bilateral thoracic perihilum 19.0 mm compared to 19.1 mm, 09/01/2023 3.3 compared to 3.5, 09/01/2023 Continues to fulfill borderline quantitative criteria for viable neoplasm, histopathologic sampling may be of benefit ? Additional right upper hemithorax pulmonary parenchyma ? 2.2 max Quantitative criteria for viable neoplasm are not fulfilled ? TECHNIQUE: Following the intravenous administration of 14.80 mCi of F-18 deoxyglucose via the right antecubital fossa, multiplanar image acquisitions of the head, neck, chest, abdomen and pelvis to the level of the midthigh, obtained at one-hour post radiopharmaceutical administration contemporaneously interpreted with the current CT of the chest, abdomen and pelvis dated 11/24/2023 and prior FDG-PET CT study dated 09/01/2023 via coregistration reveal: SERUM GLUCOSE LEVEL:? 106 mg/dL? HEIGHT:?? 61 inches WEIGHT:?? 131 pounds ? FINDINGS: ? HEAD/NECK:? There is no evidence of abnormal increased glucose metabolism in the pharyngeal mucosal space, parapharyngeal space, oropharynx, bilateral-lateral and anterior neck, hypopharynx and distribution of the larynx. ? The visualized portion of the cerebral cortical-subcortical structures demonstrate symmetric and preserved glucose metabolism. ? CHEST:? Redefined increased radiopharmaceutical concentration is noted in the right upper lung field, right upper lobe, generating a current calculated standard uptake value of 3.2. The maximum axial diameter of the metabolic, morphologic abnormality is 11.3 mm. A second focus of increased tracer uptake is noted in the right upper lung field, generating a calculated standard uptake value of 2.2. Redemonstrated increased radiopharmaceutical concentration noted in the bilateral thoracic perihilum, with a registered calculated standard uptake value of 3.3 compared to 3.5. The maximum axial diameter of the metabolic, morphologic abnormality is presently 19.0 mm compared to 19.1 mm. ? CT of the chest demonstrates the following anatomic characteristics: Additional parenchymal changes noted in the bilateral hemithorax demonstrate no evidence of quantitatively significant FDG uptake. On review of CT of the chest report, there is no definitive interval change compared to the study dated 09/01/2023. ? ABDOMEN/PELVIS:? Normal physiologic distribution of the radiopharmaceutical is identified in the hepatic and splenic parenchyma, both renal units, urinary bladder, and visualized intestinal tract. ? CT of the abdomen and pelvis is remarkable for the following: On review of CT of the chest report, there is no definitive interval change compared to the study dated 09/01/2023. ? SKELETAL:? Degenerative changes defined in the thoracic and lumbar spine demonstrate no evidence of increased glucose metabolism. There are no sclerotic, mixed sclerotic-lytic, or primarily lytic changes defined in the axial skeletal structures with evidence of increased FDG uptake. ? PET/PET/CT Tumor Base -Thigh Init IMPRESSION: 1. The increase in radiopharmaceutical concentration presumably redefined in the right upper lung field, right upper lobe, continues to fulfill quantitative criteria for viable neoplasm with single-point technique. 2. Persistently visualized enhanced tracer uptake noted in the bilateral thoracic perihilum fulfill borderline quantitative criteria for viable neoplasm with single-point technique, unchanged from the prior examination. 3. Newly identified increased radiopharmaceutical concentration manifest in the right upper lung field, right upper lobe does not fulfill quantitative criteria for viable neoplasm. 4. Overall, compared to the prior FDG PET CT study dated 09/01/2023, there is continued demonstration of apparent viable neoplasm involving the right upper lung field, right upper lobe, demonstrating a decrease in quantitative degree of uptake on the present examination. Unchanged borderline criteria for viable neoplasm remain apparent in the bilateral thoracic perihilum as defined above. Electronic Signature Miah Murrell D.O. Accurate Quantification of SUVs for this report are calculated using the exclusive [employer]. (U.S. Patent No. [phone] [phone] patent [phone]). Standardization and correction of the FDG SUV metric via [employer] technology allow for vendor non-specific objective quantitative examination comparison and optimization of the sensitivity and specificity of the FDG PET-CT examination. . [email or web address] Electronically Signed: Miah Murrell DO at 23:42 EDT ,
== END | disposition home or self-care (01) ==
PROVIDERS: PCP Internal Medicine; Referring Provider Internal Medicine Critical Care Medicine; Visit Provider Internal Medicine Critical Care Medicine
DX: R91.1 Solitary pulmonary nodule (principal)
CPT/HCPCS: 78815; A9552

== ENCOUNTER → 2023-12-11 | Outpatient (CLI) | payer MEDICARE, SELFPAY ==
[2023-12-11 11:38] LABS: Platelet Count 219 K/mm3 (150-450)
[2023-12-11 11:46] LABS: Partial Thromboplast Time 26.7 Seconds (24.1-36.2)
[2023-12-11 11:47] LABS: Prothrombin Time (Protime)PT. 12.7 SECONDS (11.7-14.9)
== END | disposition home or self-care (01) ==
LOC: PAVLAB 11:15
PROVIDERS: PCP Internal Medicine; Referring Provider Nurse Practitioner Acute Care; Visit Provider Nurse Practitioner Acute Care
DX: I48.91 Unspecified atrial fibrillation (principal); I25.10 Atherosclerotic heart disease of native coronary artery without angina pectoris; R06.00 Dyspnea, unspecified
CPT/HCPCS: 36415; 85049; 85610; 85730

== ENCOUNTER 2023-12-18 10:35 | Day surgery (SDC) | payer MEDICARE, SELFPAY ==
--- NOTE | 2023-12-17 12:47 | PCM.HP.STD ---
HPI - General HPI Narrative The patient is a 77-year-old female who initially presented to the pulmonary medicine clinic in September 2023 for the evaluation of a lung nodule. CT chest completed in July 2023 demonstrated a 1.5 cm nodular density abutting the major fissure along with a soft tissue density in the lingula measuring 1 cm. Subsequent pet imaging completed in August 2023 demonstrated increased tracer uptake in the right upper lobe bilateral thoracic hilum. Initially, the patient held off on pursuing any intervention or workup, as she had an out-of-town trip planned to [place]. Upon return to the area in November 2023, a repeat PET scan was obtained which demonstrated increased uptake in the right upper lung along with persistent tracer uptake in the bilateral thoracic perihilum. [facility] Medical History (Updated 12/17/23 @ 12:[address] Siddhartha Pendleton, DO) Abnormal results of pulmonary function studies Atypical chest pain Benign hypertension Body mass index [BMI] 25.0-25.9, adult Cancer Cardiology follow-up encounter Colitis Coronary artery disease Gastric reflux History of Mohs micrographic surgery for skin cancer History of stress test HTN (hypertension) Hypercholesteremia Multiple lung nodules Non-smoker Osteopenia Ovarian cyst Postmenopausal Solitary pulmonary nodule Vitamin D deficiency, unspecified Wears glasses Home Medications cholecalciferol (vitamin D3) 50 mcg (2,000 unit) capsule 50 mcg PO DAILY 04/23/20 [History Last Taken Unknown] vitamins A,C,D-hcjf-kezzvn 2,148 mcg-113 mg-45 mg-17.4 mg tablet 2 tab PO DAILY 04/23/20 [History Last Taken Unknown] lisinopril 20 mg-hydrochlorothiazide 25 mg tablet 1 tab PO DAILY 09/10/23 [History Last Taken Unknown] acetaminophen 325 mg tablet (Tylenol) 650 mg PO Q6H PRN pain 12/11/23 [History Last Taken Unknown] cetirizine 10 mg tablet (Allergy Relief (cetirizine)) 10 mg PO DAILY PRN allergy symptoms 12/11/23 [History Last Taken Unknown] Allergy/AdvReac Type Severity Reaction Status Date / Time No Known Allergies Allergy Verified 12/16/23 14:29 Family History (Reviewed 12/11/23 @ 10:54 by Laina Wiseman ALLERGY AND IMMUNOLOGY CHIEF, ALLERGY AND IMMUNOLOGY CHIEF-C) Grandmother Breast cancer Cancer stomach Brother Cancer Brother Diabetes Father , age 69 CVA (cerebral vascular accident) Sister CVA (cerebral vascular accident) Diabetes Surgical History (Updated 12/16/23 @ 14:42 by Krysten Park) History of bilateral salpingectomy History of cataract surgery S/P laparoscopic cholecystectomy Social History (Reviewed 12/11/23 @ 10:54 by Laina Wiseman ALLERGY AND IMMUNOLOGY CHIEF, ALLERGY AND IMMUNOLOGY CHIEF-C) household members: spouse Smoking Status: Never smoker alcohol intake: never ROS ROS Narrative As per HPI Physical Exam Const alert and no apparent distress General Appearance: cooperative HEENT normocephalic and head/scalp atraumatic Neck supple General: trachea midline Resp normal respiratory effort Auscultation: Negative for rales, rhonchi or wheezes Cardio regular rate and regular rhythm GI normal to inspection, nondistended, normoactive bowel sounds Extremity no clubbing, cyanosis or edema Skin General Skin Exam: no breakdown Neuro no focal motor deficits Psych cooperative and affect normal Assessment & Plan Assessment/Plan (1) Lung nodule: PLAN: Plan The patient has been followed in the pulmonary medicine clinic due to the presence of a pulmonary nodule along with mediastinal adenopathy, which is PET avid. Therefore, the patient was referred to undergo an endobronchial ultrasound procedure to facilitate mediastinal lymph node sampling. The risks and benefits of the proposed procedure were discussed with the patient. She is in agreement to proceed.
[2023-12-18] VITALS (7 sets, daily range): BP systolic 86–150; BP diastolic 46–67; PULSE 68–77; RESP 12–18; TEMP 36.4–36.5; O2SAT 10–100; BMI 25.3
--- NOTE | 2023-12-18 | ASPIG_PTH ---
PATIENT: LOPEZ JACKSON LOC: EN U#:[id number] AGE/SX: 78/F ROOM: RE12/18/[address]: Dr. Siddhartha Pendleton DO : 1945 BED: DIS: 12/18/2023 SPEC #: [id number] RECD: 12/18/23 13:38 STATUS: ANAT REMichael #: [id number] FARIDEH: 12/18/23 00:[address]: Siddhartha Pendleton DEPT: CYTOLOGY RECD BY: Meño Kumar ENTERED: 12/18/23 13:39 SP TYPE: ASP OUT OTHR DR: Dr. Balbina Schulz DO Tissues: A - Lung, NOS B - Lung, NOS C - Lung, NOS D - Lung, NOS E - Lung, NOS Procedures: FNA Specimen Adequacy Special Stain Group II Surgery Specimen Level IV Cytology Other HEADER OPERATION: Endobronchial Ultrasound PRE-OP DIAGNOSIS: Lung nodule TISSUE SUBMITTED: A- EBUS, TBNA, site 11L #1, B- EBUS, TBNA, site 11L #2, C- EBUS, TBNA, site 10R #3, D- EBUS, TBNA, site 11L, E- EBUS, TBNA, site 10R DIAGNOSIS CYTOLOGY A. EBUS, TBNA , site 11L#1 (smears): Negative for malignant cells. A few respiratory epithelial and lymphocytes are noted. Paucicellular specimen. B. EBUS, TBNA, site 11L #2 (smears): Bloody specimen. Negative for malignant cells. C. EBUS, TBNA, site 10R#3 (smears): Predominantly respiratory epithelial cells noted. Negative for malignant cells. Rare lymphocytes are noted. D. EBUS, TBNA site 11L fluid (cytospin and cellblock): Negative for malignant cells. Respiratory epithelial cells and lymphocytes are noted. E. EBUS, TBNA, site 10R fluid (cytospin and cellblock): Negative for malignant cells. Respiratory epithelial cells and lymphocytes are noted. SJ/mr 12/21/23 COMMENT The specimen is evaluated at the time of procedure by Dr. Amaya. Immediate Evaluation : A. EBUS, TBNA, site 11L #1: Negative for malignant cells. A few respiratory epithelial and lymphocytes are noted. Paucicellular specimen. B. EBUS, TBNA, site 11L #2: Bloody specimen. Negative for malignant cells. C. EBUS, TBNA, site 10R#3: Predominantly respiratory epithelial cells noted. Negative for malignant cells CYTOLOGY STUDY Slides are reviewed. CYTOLOGY GROSS A. Received labeled with the patient's name and and designated EBUS, TBNA, site 11L #1. The specimen consists of two stained smears for TEENA. (Rapid on site evaluation) B. Received labeled with the patient's name and and designated EBUS, TBNA, site 11L #2. The specimen consists of two stained smears for TEENA. C. Received labeled with the patient's name and and designated EBUS, TBNA, site 10R #3. The specimen consists of two stained smears for TEENA. D. Received in RPMI is 20 ml of pink, needle rinsed fluid labeled with the patient's name and and designated EBUS, TBNA, site 11L. The specimen is submitted for cell block preparation. E. Received in RPMI is 20 ml of pink, needle rinsed fluid labeled with the patient's name and and designated EBUS, TBNA, site 10R. The specimen is submitted for cell block preparation. Mr 12/18/23 TC: 5 CPT:84054N8,33899S3,45511G7,23539Z9,27403
[2023-12-18] MEDS: Lactated Ringers 1,000 ML 15 ML IV (10:52)
[2023-12-18] MEDS: Lidocaine Jelly 2% 20 ML Syringe (URO-JET) 1 APPLIC (12:40)
--- NOTE | 2023-12-18 13:13 | OP.BRONCH_ITS ---
Patient Name: Rozina Tavera Procedure Date: 12/18/2023 12:19 PM Date of : 1945 Age: 78 Procedure: Bronchoscopy Indications: Mediastinal adenopathy Providers: Siddhartha Pendleton MD Medicines: Monitored Anesthesia Care Complications: No immediate complications Procedure: Pre-Anesthesia Assessment: - A History and Physical has been performed. Patient meds and allergies have been reviewed. The risks and benefits of the procedure and the sedation options and risks were discussed with the patient. All questions were answered and informed consent was obtained. Patient identification and proposed procedure were verified prior to the procedure by the physician and the nurse in the procedure room. Mental Status Examination: alert and oriented. Airway Examination: normal oropharyngeal airway. Respiratory Examination: clear to auscultation. CV Examination: normal. ASA Grade Assessment: II - A patient with mild systemic disease. After reviewing the risks and benefits, the patient was deemed in satisfactory condition to undergo the procedure. The anesthesia plan was to use monitored anesthesia care (MAC). Immediately prior to administration of medications, the patient was re-assessed for adequacy to receive sedatives. The heart rate, respiratory rate, oxygen saturations, blood pressure, adequacy of pulmonary ventilation, and response to care were monitored throughout the procedure. The physical status of the patient was re-assessed after the procedure. After I obtained informed consent, the scope was passed under direct vision. Throughout the procedure, the patient's blood pressure, pulse, and oxygen saturations were monitored continuously. The bronchoscope was introduced through the mouth, via laryngeal mask airway and advanced to the tracheobronchial tree. The bronchoscope was introduced through the mouth, via laryngeal mask airway and advanced to the tracheobronchial tree. The patient tolerated the procedure well. Findings: The laryngeal mask airway is in good position. The vocal cords appear normal. The subglottic space is normal. The trachea is of normal caliber. The martha is sharp. The tracheobronchial tree was examined to at least the first subsegmental level. Bronchial mucosa and anatomy are normal; there are no endobronchial lesions, and no secretions. The scope was withdrawn and replaced with the EBUS bronchoscope to accomplish the ultrasound examination. Lymph Nodes: An endobronchial ultrasound endoscope was utilized to systematically examine the right hilar region (level 10R) and left interlobar region (level 11L) in order to assist with guiding the biopsy needle. The lymph node targets were small and immediately adjacent to vascular structures, making their sampling technically difficult. Sampling by transbronchial needle aspiration was also performed using an Olympus ViziShot 2 FLEX 19 gauge needle in the right hilar region (level 10R) and left interlobar region (level 11L) and sent for routine cytology. - The 11L (interlobar) node was evaluated. Two samples with the needle were obtained. - The 10R (hilar) node was evaluated. Only one sample was able to obtained with the needle. Impression: - Mediastinal adenopathy - The airway examination was normal. - Endobronchial ultrasound was performed. - Lymph node sampling was performed. Recommendation: - Await biopsy results. Procedure Code(s): --- Professional --- 53174, Bronchoscopy, rigid or flexible, including fluoroscopic guidance, when performed; with endobronchial ultrasound (EBUS) guided transtracheal and/or transbronchial sampling (eg, aspiration[s]/biopsy[ies]), one or two mediastinal and/or hilar lymph node stations or structures Diagnosis Code(s): --- Professional --- R59.0, Localized enlarged lymph nodes R09.89, Other specified symptoms and signs involving the circulatory and respiratory systems CPT copyright 2021 [employer]. All rights reserved. The codes documented in this report are preliminary and upon history instructor review may be revised to meet current compliance requirements. DO Siddhartha Toro MD 12/18/2023 1:13:16 PM This report has been signed electronically. Number of Addenda: 0 Note Initiated On: 12/18/2023 12:19 PM
== END 2023-12-18 14:30 | disposition home or self-care (01) ==
LOC: EN 10:39 → AC 10:40
PROVIDERS: PCP Internal Medicine; Referring Provider Internal Medicine; Visit Provider Internal Medicine Critical Care Medicine
PROC: BB4BZZZ Ultrasonography of Pleura (ICD-10-PCS; CPT 31653; principal; 2023-12-18 11:30)
DX: R91.1 Solitary pulmonary nodule (principal); R59.0 Localized enlarged lymph nodes; I10 Essential (primary) hypertension; I25.10 Atherosclerotic heart disease of native coronary artery without angina pectoris; E78.00 Pure hypercholesterolemia, unspecified; Z79.899 Other long term (current) drug therapy
CPT/HCPCS: 31653; 00520; 88161; 88172; 88305; 88313; J2405

== ENCOUNTER → 2023-12-22 | Outpatient (CLI) | payer MEDICARE, SELFPAY ==
[2023-12-22] VITALS (16 sets, daily range): BP systolic 129–175; BP diastolic 39–62; PULSE 68–77; RESP 12–18; TEMP 36.6; O2SAT 89–99; BMI 24.9
[2023-12-22] MEDS: 0.9% Saline Lock 10 ML Syringe IV (09:07)
[2023-12-22] MEDS: 0.9% Normal Saline (250mL Bag) 250 ML 15 ML IV (09:07)
[2023-12-22] MEDS: Midazolam 2 MG/2 ML Syringe IV (09:23)
[2023-12-22] MEDS: fentaNYL 100 MCG/2 ML Ampul IV (09:25)
[2023-12-22] MEDS: Lidocaine 2% (20 ml mdv) 20 ML Vial INFILT (09:42)
--- NOTE | 2023-12-22 09:45 | ASPIGT_PTH ---
PATIENT: LOPEZ JACKSON LOC: CT U#:[id number] AGE/SX: 78/F ROOM: RE12/22/[address]: KAELE Salas : 1945 BED: DIS: 12/22/2023 SPEC #: [id number] RECD: 12/22/23 11:55 STATUS: ANAT REMichael #: [id number] FARIDEH: 12/22/23 09:[address]: Laina Wiseman NP DEPT: SURGICAL PATHOLOGY RECD BY: Jacey Umana ENTERED: 12/22/23 11:56 SP TYPE: ASP RAD OTHR DR: Dr. Balbina Schulz DO Tissues: Lung, NOS Procedures: FNA Specimen Adequacy Special Stain Group II Surgery Specimen Level IV Imprint (control) HEADER OPERATION: Right upper lobe lung mass PRE-OP DIAGNOSIS: CT guided lung biopsy TISSUE SUBMITTED: Lung mass 20 gauge core x16 MICROSCOPIC DIAGNOSIS Right upper lobe mass, CT guided core biopsy: Fragments of benign lung parenchymal tissue, negative for malignancy. See comment. JOSH/ 12/23/23 COMMENT The specimen is evaluated at the time of touch imprints by Dr. Amaya. Immediate Evaluation = Negative for malignant cells. Please also make reference to additional specimen [id number]. Correlation with clinical, radiologic findings and appropriate follow up are necessary. This case has been reviewed in consultation with Dr. Ahn who concurs with the above diagnosis. MICROSCOPIC DESCRIPTION Slides are reviewed. GROSS DESCRIPTION Received in fixative is one container labeled with the patient's name and designated Right upper lung lobe biopsy CT guided. The specimen consists of multiple irregular fragments of light shafer soft tissue that in aggregate measure 0.5 x 0.1 x <0.1 cm. The specimen is totally submitted in one cassette. Two touch imprints are prepared at the time of core biopsy. JOSH/ 12/22/23 TC:4 CPT: 03080,02875
--- NOTE | 2023-12-22 10:15 | RAD_ITS ---
STUDY: X-RAY CHEST REASON FOR EXAM: Female, 78 years old. Immediately post lung biopsy -- Immediately post lung biopsy TECHNIQUE: AP inspiration and expiration views. COMPARISON: None. FINDINGS: There is a tiny right apical pneumothorax on the immediate post right lung biopsy radiographs. RAD/Chest Insp/Exp 2 View IMPRESSION: Tiny right apical pneumothorax on the immediate post right lung biopsy radiographs. Electronically Signed: Flaquito Redd MD at 10:47 EDT ,
--- NOTE | 2023-12-22 10:15 | PRO.PCM_ITS ---
Procedure Report Date of Procedure: 12/22/23 Assessment & Plan Assessment/Plan (1) Lung nodule: PLAN: PROCEDURE: CT GUIDED CORE NEEDLE LUNG BIOPSY ORDERING PROVIDER: Laina Wiseman CNP INDICATION: Female, 78 years old. Right upper lobe pulmonary nodule PROVIDER: VICTOR HUGO Foreman CONSENT: Written informed consent was obtained having explained the risks, benefits and alternatives in detail with the patient who accepted the risks and agreed to proceed. Laboratory review and clinical assessment was performed. PRE-PROCEDURE SEDATION ASSESSMENT: Current history and physical dictated by referring physician and reviewed. No clinical changes since date of exam. Patient has an ASA Class of 2. PROCEDURAL SEDATION PROTOCOL: The Drugs used were: 2 mg Versed, IV, and 50 mcg Fentanyl, IV. The sedation time was: 27 minutes, starting at 9:25 AM and terminated at 9:52 AM. The procedural sedation protocol was independently monitored by the department nurse. RADIATION DOSAGE (If Supplied By Facility): CTDIvol = 15.23 mGy, DLP = 270.11 mGycm Individualized dose optimization techniques were used for this CT. TECHNIQUE: The patient was placed in a prone position. A noncontrast CT was performed to localize the lesion in the right upper lobe. The skin surface was prepped and draped in a sterile fashion. 2% lidocaine was used for local anesthesia. Using CT guidance, a 20-gauge coaxial biopsy device was advanced to the perip kavita of the lesion. A total of 6 core specimens were obtained. Specimens were microscopically reviewed by pathology in the CT suite and placed in formalin solution. BioSentry tract sealant system was deployed at the biopsy site, and the biopsy needle was removed. A sterile occlusive dressing was applied to the biopsy site. The patient tolerated the procedure well. An immediate chest xray was ordered, per protocol. A negative biopsy does not exclude malignancy. Further imaging or clinical followup based on patient condition and degree of clinical suspicion for malignancy. Suggest rebiopsy, if biopsy results do not match with clinical scenario. IMPRESSION: 1. CT directed core needle biopsy of right upper lobe nodule using CT image guidance with image documentation as described. Pathology results are pending. 2. Procedural Sedation protocol utilized with independent monitoring by the department nurse. Procedures Radiology Radiology CT Procedures: 41698 Biopsy Lung
--- NOTE | 2023-12-22 12:00 | RAD_ITS ---
STUDY: X-RAY CHEST REASON FOR EXAM: Female, 78 years old. 2 hours post lung biopsy -- 2 hours post lung biopsy TECHNIQUE: AP inspiration and expiration views. COMPARISON: Comparison is made with prior study done earlier in the day. FINDINGS: Minimal right apical pneumothorax. This has improved as compared to prior study. RAD/Chest Insp/Exp 2 View IMPRESSION: Minimal right apical pneumothorax. This has improved as compared to prior study. Electronically Signed: Flaquito Redd MD at 12:16 EDT ,
== END | disposition home or self-care (01) ==
LOC: CT 08:29
PROVIDERS: PCP Internal Medicine; Referring Provider Nurse Practitioner Acute Care; Visit Provider Nurse Practitioner Acute Care
DX: R91.8 Other nonspecific abnormal finding of lung field (principal)
CPT/HCPCS: 32408; 71046; 77012; 88172; 88305; 88313; 99156; J7050; A4216; C2613

== ENCOUNTER → 2024-03-11 | Outpatient (CLI) | payer MEDICARE, SELFPAY ==
--- NOTE | 2024-03-11 12:01 | BI_ITS ---
MAMMOGRAPHY - BILATERAL SCREENING 3-D TOMOSYNTHESIS REASON FOR EXAM: Female, 78 years old. screening PERTINENT HISTORY: No significant family history. TECHNIQUE: 2-D mammograms and 3-D Tomosynthesis of the breast (s) were performed. CAD was performed. COMPARISON: 02/13/2023 FINDINGS: The breast composition is heterogeneously dense that can obscure small breast masses. Scattered benign calcifications are seen. No dominant mass. No suspicious patient''s right breast. Grouped punctate calcifications in the upper outer quadrant left breast at posterior depth and magnification views are recommended for further evaluation. Bilateral benign vascular calcifications can be associated with coronary artery disease.. No architectural distortion is identified. There is no skin thickening or retraction. BI/SCRN MAMM (CAD)W/HOANG BILAT IMPRESSION: Further imaging evaluation is recommended. ASSESSMENT CATEGORY: BIRADS Category 0: Incomplete. Need additional imaging evaluation as above. A letter regarding these results will be sent to the patient by the facility within 30 days. FOLLOW UP RECOMMENDATION: Additional imaging recommended as above. (E) Approximately 10% of breast cancers are not detected by mammography. A normal mammogram should not delay biopsy of a clinically suspicious abnormality. Electronically Signed: Miah George MD at 14:00 EDT ,
== END | disposition home or self-care (01) ==
LOC: OPBI 11:59
PROVIDERS: PCP Internal Medicine; Referring Provider Internal Medicine; Visit Provider Internal Medicine
DX: Z12.31 Encounter for screening mammogram for malignant neoplasm of breast (principal)
CPT/HCPCS: 77063; 77067

== ENCOUNTER → 2024-03-16 | Outpatient (CLI) | payer MEDICARE, SELFPAY ==
--- NOTE | 2024-03-16 08:56 | BI_ITS ---
MAMMOGRAPHY - UNILATERAL DIAGNOSTIC: LEFT BREAST REASON FOR EXAM: Female, 78 years old. Mammographic calcification found on diagnostic imaging of breast PERTINENT HISTORY: Non-contributory. TECHNIQUE: Digital examination. Mediolateral oblique (MLO) and craniocaudad (CC) views of the breast were obtained. CAD: CAD was not performed on this study. COMPARISON: 02/13/2023 FINDINGS: Breast Composition: There are scattered areas of fibroglandular density. Magnification views confirm segmental pleomorphic calcifications in the upper outer quadrant of the left breast at posterior depth with ill-defined surrounding density worrisome for ductal carcinoma in situ in possible invasive ductal carcinoma. No other significant abnormalities are identified. BI/DIAG MAMM W/CAD, UNILAT IMPRESSION: Magnification views confirm segmental pleomorphic calcification with surrounding density in the upper outer quadrant left breast worrisome for ductal carcinoma in situ and possible invasive ductal carcinoma. Ultrasound will be obtained to exclude mass. If ultrasound does not confirm a mass, stereotactic breast biopsy could be performed. ASSESSMENT CATEGORY: BIRADS Category 0: Incomplete. Need additional imaging evaluation. A letter regarding these results will be sent to the patient by the facility within 30 days. FOLLOW-UP RECOMMENDATION: Ultrasound recommended. (I) Approximately 10% of breast cancers are not detected by mammography. A normal mammogram should not delay biopsy of a clinically suspicious abnormality. Electronically Signed: Miah George MD at 9:52 EDT ,
--- NOTE | 2024-03-16 08:57 | US_ITS ---
STUDY: ULTRASOUND BREAST - LEFT REASON FOR EXAM: Female, 78 years old. Abnormal screening mammogram. TECHNIQUE: Axial and longitudinal images of the LEFT breast were performed with a high resolution ultrasound transducer. # OF IMAGES: 12 COMPARISON: Diagnostic mammogram earlier today, screening mammogram 03/11/2024 FINDINGS: LEFT Breast: Heterogeneous background echotexture. At 2:00, 6 cm from nipple, ultrasound does not confirm a discrete mass but does confirm some punctate echogenic foci which may represent the microcalcifications seen on mammography. Nevertheless, findings are much better seen on mammography than on ultrasound and therefore stereotactic breast biopsy is recommended.: US/Breast Limited Unilateral IMPRESSION: Ultrasound does not confirm a discrete mass with associated microcalcifications and therefore stereotactic breast biopsy is recommended. ASSESSMENT CATEGORY: BIRADS Category 5: Highly Suggestive of Malignancy. Appropriate Action Should Be Taken. A letter regarding these results will be sent to the patient by the facility within 30 days. Electronically Signed: Miah George MD at 11:38 EDT ,
== END | disposition home or self-care (01) ==
LOC: OPBI 08:53
PROVIDERS: PCP Internal Medicine; Referring Provider Internal Medicine; Visit Provider Internal Medicine
DX: R92.1 Mammographic calcification found on diagnostic imaging of breast (principal)
CPT/HCPCS: 76642; 77065

== ENCOUNTER → 2024-04-05 | Outpatient (CLI) | payer MEDICARE, SELFPAY ==
--- NOTE | 2024-04-05 08:30 | PET_ITS ---
EXAMINATION: FDG PET-CT INDICATIONS: A 78-year-old female with a history of pulmonary nodularity. COMPARISON EXAMINATION: Previous FDG PET CT study dated 11/24/23. INDEX LESION SIZE SUV INTERPRETATION NEW: Left breast 8.2 mm 2.9 Warrants further investigation with conventional mammography or ultrasound secondary to the quantitative degree of uptake. PERSISTENT: Right upper lung, right upper lobe 1.5 comp to 3.2 Quantitative criteria for viable neoplasm are not fulfilled. PERSISTENT: Bilateral thoracic perihilum 2.2 comp to 3.3. Quantitative criteria for viable neoplasm are not fulfilled. NEW: Bilateral hemithorax pulmonary parenchyma 1.2 max Quantitative criteria for viable neoplasm are not fulfilled. TECHNIQUE: Following the intravenous administration of 13.37 mCi of F-18 deoxyglucose via the right antecubital fossa, multiplanar image acquisitions of the head, neck, chest, abdomen and pelvis to level of mid-thigh, lower extremities obtained at one hour post radiopharmaceutical administration contemporaneously interpreted with the current CT of the head, neck, chest, abdomen and pelvis to level of mid-thigh, lower extremities dated 04/05/24 via coregistration and previous FDG PET CT study dated 11/24/23 reveal: SERUM GLUCOSE LEVEL: 108 mg/dl. HEIGHT: 61 inches. WEIGHT: 135 lbs. FINDINGS: Head/Neck: There is no evidence of abnormal increased glucose metabolism in the pharyngeal mucosal space, parapharyngeal space, bilateral-lateral and anterior neck, hypopharynx and distribution of the laryngeal structures. The visualized portion of the cerebral cortical-subcortical structures demonstrate symmetric and preserved glucose metabolism. CHEST: Persistent increased uptake is noted in the right upper lung field, right upper lobe generating a calculated maximum standard uptake value of 1.5 compared to 3.2. Redemonstrated increased uptake is noted in the bilateral thoracic perihilum generating a current calculated maximum standard uptake value of 2.2 compared to 3.3. Newly identified increased uptake is visualized in the left breast with a calculated maximum standard uptake value of 2.9. The maximum axial diameter of the corresponding soft tissue density is 8.2 mm. Facilitated uptake remains apparent in the bilateral lung christian with a calculated maximum standard uptake value of 1.2. Otherwise, the previously defined morphologic-anatomic changes described on the prior FDG PET-CT report dated 11/24/23, are essentially unchanged on the current examination. Abdomen/Pelvis: Normal physiologic distribution of the radiopharmaceutical is apparent in the hepatic (3.2) and splenic parenchyma, both renal units, bladder and visualized intestinal tract. Diffuse radiopharmaceutical concentration is noted in all four quadrants of the abdomen and pelvis. Otherwise, the previously defined morphologic-anatomic changes described on the prior FDG PET-CT report dated 11/24/23, are essentially unchanged on the current examination. Skeletal: There is no visualized sclerotic-lytic changes manifest on review of the appendicular-axial skeletal structures. PET/PET/CT Tumor Base -Thigh Init IMPRESSION: 1. Facilitated uptake newly identified in the left breast may warrant further investigation with mammography and/or ultrasound, secondary to the quantitative degree of uptake. 2. Enhanced tracer distribution redefined in the right upper lung and right upper lobe and bilateral thoracic perihilum do not fulfill quantitative criteria for malignant transformation on the present examination. 4. Newly visualized bilateral hemithorax pulmonary parenchymal hypermetabolic foci do not fulfill quantitative criteria for malignant transformation. 5. Overall, compared to the prior FDG PET CT study dated 11/24/23, the abnormality defined in the left breast may warrant further radiologic investigation. Electronic Signature Miah Murrell D.O. Accurate Quantification of SUVs for this report are calculated using the exclusive [employer], ([place]. Patent No. [id number] [phone] [phone] [place] patent [phone] ). Standardization and correction of the FDG SUV metric exclusively available with [employer] intellectual property, allow for vendor non-specific objective quantitative sequential FDG PET-CT comparison and otherwise unobtainable optimization of the sensitivity and specificity of the examination. [email or web address] Electronically Signed: Miah Murrell DO at 22:02 EDT ,
== END | disposition home or self-care (01) ==
PROVIDERS: PCP Internal Medicine; Referring Provider Nurse Practitioner Acute Care; Visit Provider Nurse Practitioner Acute Care
DX: R91.8 Other nonspecific abnormal finding of lung field (principal); R59.0 Localized enlarged lymph nodes
CPT/HCPCS: 78815; A9552

== ENCOUNTER → 2025-02-08 | Outpatient (CLI) | payer MEDICARE, SELFPAY ==
--- NOTE | 2025-02-08 16:15 | US_ITS ---
PROCEDURE: PELVIC W/ TRANSVAGINAL REASON FOR EXAM: ULTRASOUND, PELVIS, COMPLETE Follow-up of left ovarian cyst. TECHNIQUE: Transabdominal and transvaginal pelvic ultrasound COMPARISON: Prior study dated July 23, 2022. FINDINGS: Measurements: Uterus: 5.7 cm x 3.3 cm x 2.8 cm with a volume of 4 81 mL Endometrial Thickness: 3.4 mm. It is fluid-filled. There are 2 recommended. Right Ovary: Nonvisualized. Left Ovary: 2.7 cm x 2.1 cm x 1.7 cm. TRANSABDOMINAL: Uterus: The uterus is heterogeneous in keeping with fibroid change. Nabothian cyst is seen. Endometrium: Thickened endometrium containing fluid and 2 subcentimeter echogenic nodules. Polyps should be ruled out. Right ovary: Normal size and echotexture. Left ovary: Small follicles 4 cm. Other: No large pelvic mass identified. Transvaginal sonography was performed to better visualize the endometrium. TRANSVAGINAL: Uterus: Heterogeneous appearance in keeping with fibroid change. Endometrium: Heterogeneously thickened endometrium as described. Right ovary: Not visualized. Left ovary: Small follicle seen within the ovary. Other adnexal findings: None. Cul-de-sac: No free intraperitoneal fluid identified. Tenderness: No tenderness US/Pelvic w/ Transvaginal IMPRESSION: Heterogeneous echotexture of the uterus suggestive of fibroid change. Thickened endometrium with fluid and tiny echogenic nodule suggestive of possib le polyps. Clinical correlation recommended. Reading Location: [facility]
== END | disposition home or self-care (01) ==
LOC: US 16:08
PROVIDERS: PCP Internal Medicine; Referring Provider Internal Medicine; Visit Provider Internal Medicine
DX: N83.202 Unspecified ovarian cyst, left side (principal)
CPT/HCPCS: 76830; 76856

== ENCOUNTER → 2025-04-05 | Outpatient (CLI) | payer MEDICARE, SELFPAY ==
--- NOTE | 2025-04-05 14:57 | BI_ITS ---
EXAM: SCREEN MAMM (CAD) W/HOANG UNI R DATE: 04/05/2025 CLINICAL HISTORY: F, Age 79 y/o , BILAT BRST SCREEN HOANG ADD-ON TECHNIQUE: SCREEN MAMM (CAD) W/HOANG UNI R COMPARISON: Prior exam(s) dated 03/03/2024, 02/13/2023. FINDINGS: TISSUE DENSITY: There are scattered areas of fibroglandular density. Unilateral Right Breast Mammographic Findings: There are postsurgical changes of right breast reduction. No significant masses, calcifications or other abnormalities are identified. BI/SCREEN MAMM (CAD) W/HOANG UNI R IMPRESSION: There is no mammographic evidence of malignancy. OVERALL FINAL ASSESSMENT BI-RADS 2: BENIGN RECOMMENDATION: Routine annual follow-up in 1 Year A letter with findings and recommendations will be mailed to the patient. Reading Location: [id number]
== END | disposition home or self-care (01) ==
LOC: OPBI 14:57
PROVIDERS: PCP Internal Medicine; Referring Provider Internal Medicine; Visit Provider Internal Medicine
DX: Z12.31 Encounter for screening mammogram for malignant neoplasm of breast (principal)
CPT/HCPCS: 77063; 77067

== ENCOUNTER → 2025-05-25 | Outpatient (CLI) | payer MEDICARE, SELFPAY ==
--- NOTE | 2025-05-25 13:07 | CT_ITS ---
PROCEDURE: CHEST WITHOUT CONTRAST 05/25/2025 REASON FOR EXAM: CT OF CHEST WITHOUT CONTRAST History of breast cancer and prior left mastectomy. Follow-up lung nodule. TECHNIQUE: Chest CT without contrast. Coronal and Sagittal reconstruction series were provided. One or more dose reduction techniques were used (e.g., Automated exposure control, adjustment of the mA and/or kV according to patient size, use of iterative reconstruction technique RADIATION DOSE SUMMARY: CTDlvol: 9.81 mGy DLP: 348.70 mGycm COMPARISON: Prior study dated July 29, 2023. FINDINGS: Hardware: The patient is status post left mastectomy and left breast reconstruction. Lymph nodes: No suspicious lymph nodes are seen. Heart and Vasculature: The heart is nonenlarged. Calcification of the aortic arch and descending thoracic aorta. Coronary Artery Calcifications: Present Lungs and Airways: Stable mild residual reticular nodular pattern in the posterior aspect of both upper lobes slightly more prominent on the right side. The previously seen 1.5 cm nodule in the posterior aspect of the right upper lobe abutting the minor fissure has decreased in size. Pleura: No pleural effusion Upper Abdomen: Status post cholecystectomy. Bones: Degenerative changes of the thoracic spine. CT/Chest without Contrast IMPRESSION: Coronary artery calcification (CAC) is is present Interval resolution of the previously seen nodule in the posterior aspect of th e right upper lobe abutting the right minor fissure. Residual reticular nodular appearance in both upper lobes suggestive of scarrin g. Reading Location: [id number]
== END | disposition home or self-care (01) ==
PROVIDERS: PCP Internal Medicine; Referring Provider Internal Medicine; Visit Provider Internal Medicine
DX: R91.1 Solitary pulmonary nodule (principal); Z90.12 Acquired absence of left breast and nipple; Z85.3 Personal history of malignant neoplasm of breast
CPT/HCPCS: 71250

== ENCOUNTER → 2025-08-17 | Outpatient (CLI) | payer MEDICARE, SELFPAY ==
[2025-08-17 11:02] LABS: Mucous, Urine 0 SEEN /hpf (<or=2+)
[2025-08-17 12:20] LABS: Hematocrit 41.7 % (37-47); Hemoglobin 13.9 g/dL (12.0-15.0); Immature Granulocytes Count 0.010 X10^3/uL (0.0-0.0); Mean Corp Hgb Conc 33.3 g/dL (32-36); Mean Corpuscular Volume 94.3 fL (81-99); Mean Platelet Vol. 10.2 fl (6.2-12.0); NRBC Flagged by Analyzer 0 % (0-5); Platelet Count 219 K/mm3 (150-450); RBC Distribution Width CV 12.5 % (11.6-14.6); RBC Distribution Width SD 43.5 fl (35.1-43.9); Red Blood Count 4.42 M/mm3 (4.2-5.4); White Blood Count 4.6 K/mm3 (4.4-11.0)
[2025-08-17 12:30] LABS: Color, Urine Yellow (Yellow); Glucose, Dipstick Normal (Normal); Ketone-Dipstick Negative (Negative); Leukocyte Esterase-Dipstick 500 /ul (Negative); Nitrite-Dipstick Negative (Negative); Occult Blood-Urine 10 /ul (Negative); Protein-Dipstick 15 mg/dl (Negative); Specific Gravity, Urine 1.020 (1.002-1.030); Urine Bilirubin Dipstick Negative (Negative)
[2025-08-17 12:53] LABS: Red Blood Cells-Urine 0-5 SEEN /hpf (0-5); Squamous Epithelial Cells - UA 5-10 SEEN /hpf (5-10)
[2025-08-17 12:57] LABS: AST(SGOT) 18 U/L (<=31); Alanine Aminotransfer ALT/SGPT 16 U/L (<=34); Albumin, Serum 4.5 g/dL (3.4-4.8); Alkaline Phosphatase 97 U/L (35-104); Anion Gap 11 (5-15); BUN 19 mg/dL (4-19); BUN/Creat Ratio 24.3 RATIO (10-20); Calcium,Total 10.0 mg/dL (7.6-11.0); Carbon Dioxide 29.1 mmol/L (21.0-32.0); Chloride 102 mmol/L (98-108); Globulin 2.5 g/dL (2.2-4.2); Glucose 95 mg/dL (70-99); Potassium 4.2 mmol/L (3.3-5.1)
[2025-08-17 13:02] LABS: Creatinine, Urine (random) 108.00 mg/dL (28.00-217.00); Microalbumin,Random Urine < 12.0 mg/L (<20 mg/L)
== END | disposition home or self-care (01) ==
LOC: LABSPEC 11:00
PROVIDERS: PCP Internal Medicine; Referring Provider Internal Medicine; Visit Provider Internal Medicine
DX: R73.01 Impaired fasting glucose (principal)
CPT/HCPCS: 80053; 81001; 82043; 82570; 85025

== ENCOUNTER → 2025-08-29 | Outpatient (CLI) | payer MEDICARE, SELFPAY ==
--- NOTE | 2025-08-29 10:54 | BD_ITS ---
PROCEDURE: DEXA BONE DENSITY STUDY 08/29/2025 REASON FOR EXAM: F, age 79 y/o . Postmenopausal. TECHNIQUE: Procedure Code: BDDBD Modality: DX Procedure: DEXA BONE DENSITY STUDY COMPARISON: August 27, 2023. FINDINGS: BMD and T-SCORES Lumbar spine: 0.893 g/cm2, T-score -1.4 Levels: L1 through L4 Change from prior: Loss of 1.4%. Left femoral neck: 0.623 g/cm2, T-score -2.0 Femoral neck comparison data not recommended for monitoring change. Left total hip: 0.797 g/cm2, T-score -1.2 Change from prior: Loss of 2.5%. Right femoral neck: 0.642 g/cm2, T-score -1.7 Femoral neck comparison data not recommended for monitoring change. Right total hip: 0.810 g/cm2, T-score -1.1 Change from prior: Loss of 1.3%. The World Health Organization has defined the following categories based on bone density: Normal bone density: T-score equal to or greater than -1.0 Osteopenia: T-score between -1.0 and -2.5 Osteoporosis: T-score equal to or less than -2.5 FRAX (or Comparable) Fracture Risk Assessment: 10 Year Probability of Fracture: Major Osteoporotic Fracture: 23% Hip Fracture: 6.2% (Note: FRAX is not to be reported in setting of normal range bone density, osteoporosis on DEXA, known history of osteoporosis, prior osteoporotic hip or vertebral fracture, or for any patient undergoing pharmacological treatment for bone loss.) The National Osteoporosis Foundation (NOF) recommends pharmacological treatment for patients with a FRAX 10-year risk of 3% or higher for a hip fracture, or 20% or higher for a major osteoporotic fracture, to prevent osteoporosis and reduce fracture risk. The patient does meet the pharmacological treatment recommendations for prevention of osteoporosis. BD/Dexa Bone Density Study IMPRESSION: OSTEOPENIA. Recommend follow-up as clinically warranted. Reading Location: [id number]
== END | disposition home or self-care (01) ==
PROVIDERS: PCP Internal Medicine; Referring Provider Internal Medicine; Visit Provider Internal Medicine
DX: Z78.0 Asymptomatic menopausal state (principal)
CPT/HCPCS: 77080